=== PATIENT | female | born 1975 | race African-American/Black ===

== ENCOUNTER 2025-07-10 08:50 | Emergency (ER) | payer MEDICAID, OTHER ==
[~2025-07-10] VITALS: Ht 167.6 cm; Wt 85.0 kg
[2025-07-10] MEDS: ALBUTEROL (0.083%) 2.5MG/3ML NEB HHN SCH (11:19)
[2025-07-10] MEDS: IPRATROPIUM BROMIDE (0.02%) 0.5MG/2.5ML NEB HHN SCH (11:19)
[2025-07-10 11:22] VITALS: PULSE 86; RESP 22; O2SAT 100
[2025-07-10] MEDS: PREDNISONE 20MG TABLET PO ONE (11:32)
[2025-07-10] MEDS ORDERED: P50 MT (12:39)
[2025-07-10] MEDS ORDERED: ALBU90AE INH (12:39)
[2025-07-10 12:54] VITALS: BP 135/82; PULSE 80; RESP 22; TEMP 36.9; O2SAT 100
== END 2025-07-10 12:55 | disposition home or self-care (01) ==
LOC: ER 08:50
DX: J45.901 Unspecified asthma with (acute) exacerbation (principal); I10 Essential (primary) hypertension; Z90.49 Acquired absence of other specified parts of digestive tract; Z88.5 Allergy status to narcotic agent
CPT/HCPCS: 94644; 99285; J7512; Z7610 ×2; 94640; 94664